=== PATIENT | female | born 1950 | race Caucasian/White ===

== ENCOUNTER 2017-03-29 12:25 | Outpatient (CLI) | payer OTHER ==
[~2017-03-29 12:25] MED LIST: ALBUTEROL2.5 MG/3 M IH; BUTALBITAL COMP; CALAN SR120 MG PO; CLARITIN PO; Cardizem 120MG TAB PO; FORTAMET1000 MG; Fioricet Tablet PO; HYZAAR 50-12.1 UDTAB PO; Hyzaar 50-12.5 Tablet PO; LEVAQUIN750 MG PO; NEXIUM20 MG/PACK PO; ORPH100T PO; PLAVIX 75MG PO; PREMARIN0.45 MG PO; Pepcid 20 MG TABLET PO; Xopenex 0.63 MG/3 ML SOLUTION IH; ZYNCOF 20-400120 ML PO; [UNRECOGNIZED DRUG - CODE]
== END 2017-03-29 12:35 | disposition home or self-care (01) ==
LOC: MAMO-SONO 12:25
DX: N60.11 Diffuse cystic mastopathy of right breast (principal); N60.12 Diffuse cystic mastopathy of left breast

== ENCOUNTER 2017-10-11 21:09 | Emergency (ER) | payer OTHER ==
[~2017-10-11] VITALS: Ht 154.9 cm; Wt 82.6 kg
[2017-10-11] MEDS ORDERED: DEXILANT60 MG (21:19)
[2017-10-12] MEDS ORDERED: DOLOGESIC 500-1 EACH PO (04:16)
== END 2017-10-12 04:42 | disposition home or self-care (01) ==
LOC: ER 21:09 → CPU-OBS 21:57 → ER 10-12 04:42
DX: R07.89 Other chest pain (principal)
CPT/HCPCS: G0378; G0379; 93005

== ENCOUNTER 2017-10-24 12:30 | Outpatient (CLI) | payer OTHER ==
[~2017-10-24 12:30] MED LIST changes: +DEXILANT60 MG; +DOLOGESIC 500-1 EACH PO
== END 2017-10-24 12:32 | disposition home or self-care (01) ==
LOC: LAB 12:30
DX: I11.9 Hypertensive heart disease without heart failure (principal); E78.00 Pure hypercholesterolemia, unspecified

== ENCOUNTER 2017-11-06 13:17 | Outpatient (CLI) | payer OTHER | END 2017-11-06 13:21 | disposition home or self-care (01) | LOC: RAD 13:17 | DX: M54.5 Low back pain (principal); M54.89 Other dorsalgia; R25.2 Cramp and spasm; M19.90 Unspecified osteoarthritis, unspecified site; G56.02 Carpal tunnel syndrome, left upper limb; G56.01 Carpal tunnel syndrome, right upper limb ==

== ENCOUNTER 2018-05-12 11:58 | Outpatient (CLI) | payer OTHER | END 2018-05-12 15:32 | disposition home or self-care (01) | LOC: RAD 11:58 | DX: M54.2 Cervicalgia (principal); M54.5 Low back pain; M15.0 Primary generalized (osteo)arthritis; M16.0 Bilateral primary osteoarthritis of hip ==

== ENCOUNTER 2018-05-22 15:13 | Emergency (ER) | payer OTHER ==
[~2018-05-22] VITALS: Ht 154.9 cm; Wt 86.2 kg
[2018-05-22] MEDS ORDERED: INTESTINEX680 M1 PO (22:39)
[2018-05-22] MEDS ORDERED: URIN D.S. TABL1 EACH PO (22:39)
[2018-05-22] MEDS ORDERED: BACTRIM DS TAB1 EACH PO (22:39)
[2018-05-22] MEDS ORDERED: BUTALB-ACETAMI1 EACH PO (22:40)
== END 2018-05-22 22:49 | disposition home or self-care (01) ==
LOC: ER 15:13
DX: M54.5 Low back pain (principal); R10.31 Right lower quadrant pain

== ENCOUNTER 2018-08-07 15:47 | Outpatient (CLI) | payer OTHER ==
[~2018-08-07 15:47] MED LIST changes: +BACTRIM DS TAB1 EACH PO; +BUTALB-ACETAMI1 EACH PO; +INTESTINEX680 M1 PO; +URIN D.S. TABL1 EACH PO
== END 2018-08-07 15:51 | disposition home or self-care (01) ==
LOC: RAD 15:47
DX: M54.5 Low back pain (principal); I10 Essential (primary) hypertension; E78.89 Other lipoprotein metabolism disorders; E55.9 Vitamin D deficiency, unspecified; E11.51 Type 2 diabetes mellitus with diabetic peripheral angiopathy without gangrene; E11.9 Type 2 diabetes mellitus without complications; M89.8X8 Other specified disorders of bone, other site; K21.9 Gastro-esophageal reflux disease without esophagitis; E11.42 Type 2 diabetes mellitus with diabetic polyneuropathy; F41.8 Other specified anxiety disorders; N13.5 Crossing vessel and stricture of ureter without hydronephrosis; N13.2 Hydronephrosis with renal and ureteral calculous obstruction

== ENCOUNTER 2018-09-17 11:22 | Outpatient (CLI) | payer OTHER | END 2018-09-17 11:59 | disposition home or self-care (01) | LOC: SONOGRAMA 11:22 | DX: N20.0 Calculus of kidney (principal); N83.291 Other ovarian cyst, right side ==

== ENCOUNTER 2018-12-03 21:26 | Emergency (ER) | payer OTHER ==
[~2018-12-03] VITALS: Ht 154.9 cm; Wt 86.2 kg
== END 2018-12-04 03:14 | disposition home or self-care (01) ==
LOC: ER 21:26
DX: M25.551 Pain in right hip (principal)

== ENCOUNTER 2019-02-05 13:59 | Outpatient (CLI) | payer OTHER | END 2019-02-05 14:05 | disposition home or self-care (01) | LOC: MAMO-SONO 13:59 | DX: I10 Essential (primary) hypertension (principal); M54.5 Low back pain; E78.49 Other hyperlipidemia; E55.9 Vitamin D deficiency, unspecified; E11.51 Type 2 diabetes mellitus with diabetic peripheral angiopathy without gangrene; E11.9 Type 2 diabetes mellitus without complications; M89.8X8 Other specified disorders of bone, other site; K21.9 Gastro-esophageal reflux disease without esophagitis; E11.42 Type 2 diabetes mellitus with diabetic polyneuropathy; F41.8 Other specified anxiety disorders; N13.5 Crossing vessel and stricture of ureter without hydronephrosis; N13.2 Hydronephrosis with renal and ureteral calculous obstruction ==

== ENCOUNTER 2019-03-15 15:04 | Emergency (ER) | payer OTHER ==
[~2019-03-15] VITALS: Ht 154.9 cm; Wt 82.6 kg
[2019-03-15] MEDS ORDERED: FORTAMET1000 MG (16:12)
[2019-03-15] MEDS ORDERED: DEXILANT30 MG (16:12)
== END 2019-03-15 21:23 | disposition home or self-care (01) ==
LOC: ER 15:04
DX: M94.0 Chondrocostal junction syndrome [Tietze] (principal); R07.89 Other chest pain

== ENCOUNTER → 2019-07-13 11:08 | Outpatient (CLI) | payer OTHER ==
[~2019-07-13 11:08] MED LIST changes: +DEXILANT30 MG
== END | disposition home or self-care (01) ==
LOC: LAB 11:08
DX: K30 Functional dyspepsia (principal); K21.9 Gastro-esophageal reflux disease without esophagitis; D13.1 Benign neoplasm of stomach; I11.9 Hypertensive heart disease without heart failure; E78.49 Other hyperlipidemia

== ENCOUNTER 2019-10-14 11:18 | Outpatient (CLI) | payer OTHER | END 2019-10-14 11:28 | disposition home or self-care (01) | LOC: MAMO-SONO 11:18 | PROVIDERS: ATTEND Specialist | DX: Z12.31 Encounter for screening mammogram for malignant neoplasm of breast (principal); N60.11 Diffuse cystic mastopathy of right breast; N60.12 Diffuse cystic mastopathy of left breast ==

== ENCOUNTER 2019-11-09 11:07 | Outpatient (CLI) | payer OTHER | END 2019-11-09 11:33 | disposition home or self-care (01) | LOC: NUCLEAR 11:07 | PROVIDERS: ATTEND Internal Medicine Rheumatology | DX: M81.0 Age-related osteoporosis without current pathological fracture (principal) ==

== ENCOUNTER → 2019-11-09 | Outpatient (CLI) | payer OTHER | END | disposition home or self-care (01) | LOC: RAD 12:21 | PROVIDERS: ATTEND Internal Medicine Rheumatology | DX: M51.26 Other intervertebral disc displacement, lumbar region (principal); M70.61 Trochanteric bursitis, right hip; M70.62 Trochanteric bursitis, left hip; M17.0 Bilateral primary osteoarthritis of knee ==

== ENCOUNTER 2020-08-25 10:20 | Outpatient (CLI) | payer OTHER | END 2020-08-25 10:31 | disposition home or self-care (01) | LOC: SONOGRAMA 10:20 | PROVIDERS: ATTEND Specialist | DX: R10.31 Right lower quadrant pain (principal); R10.32 Left lower quadrant pain ==

== ENCOUNTER 2020-12-29 14:31 | Outpatient (CLI) | payer OTHER | END 2020-12-29 14:40 | disposition home or self-care (01) | LOC: RAD 14:31 | DX: M25.572 Pain in left ankle and joints of left foot (principal); M25.571 Pain in right ankle and joints of right foot; M54.59 Other low back pain; M17.0 Bilateral primary osteoarthritis of knee; M72.8 Other fibroblastic disorders ==

== ENCOUNTER 2021-11-01 09:33 | Outpatient (CLI) | payer OTHER | END 2021-11-01 09:39 | disposition home or self-care (01) | LOC: MAMO-SONO 09:33 | PROVIDERS: ATTEND Internal Medicine Rheumatology | DX: R10.9 Unspecified abdominal pain (principal); R10.2 Pelvic and perineal pain; Z12.31 Encounter for screening mammogram for malignant neoplasm of breast; N60.19 Diffuse cystic mastopathy of unspecified breast ==

== ENCOUNTER 2022-01-23 10:40 | Outpatient (CLI) | payer OTHER | END 2022-01-23 10:53 | disposition home or self-care (01) | LOC: RAD 10:40 | PROVIDERS: ATTEND Radiology Nuclear Radiology | DX: M50.10 Cervical disc disorder with radiculopathy, unspecified cervical region (principal); M51.24 Other intervertebral disc displacement, thoracic region; M51.27 Other intervertebral disc displacement, lumbosacral region; M25.551 Pain in right hip; M25.552 Pain in left hip; M23.200 Derangement of unspecified lateral meniscus due to old tear or injury, right knee; N20.0 Calculus of kidney ==

== ENCOUNTER 2022-05-10 13:08 | Outpatient (CLI) | payer OTHER ==
[~2022-05-10 13:08] MED LIST changes: +CONZIP200 MG; +FOLIC ACID0.8 M1; +NEURONTIN300 MG; +PLAVIX75 MG
== END 2022-05-10 13:12 | disposition home or self-care (01) ==
LOC: NUCLEAR 13:08
DX: M81.0 Age-related osteoporosis without current pathological fracture (principal)

== ENCOUNTER 2022-06-27 14:47 | Outpatient (CLI) | payer OTHER | END 2022-06-27 14:50 | disposition home or self-care (01) | LOC: RAD 14:47 | PROVIDERS: ATTEND Specialist | DX: M54.2 Cervicalgia (principal); M16.0 Bilateral primary osteoarthritis of hip; M17.0 Bilateral primary osteoarthritis of knee ==

== ENCOUNTER 2022-10-10 11:48 | Outpatient (CLI) | payer OTHER | END 2022-10-10 11:57 | disposition home or self-care (01) | LOC: SONOGRAMA 11:48 | PROVIDERS: ATTEND Specialist | DX: M75.100 Unspecified rotator cuff tear or rupture of unspecified shoulder, not specified as traumatic (principal); M50.20 Other cervical disc displacement, unspecified cervical region; M51.36 Other intervertebral disc degeneration, lumbar region; M16.0 Bilateral primary osteoarthritis of hip; M17.0 Bilateral primary osteoarthritis of knee ==

== ENCOUNTER 2022-10-26 11:02 | Outpatient (CLI) | payer OTHER | END 2022-10-26 11:07 | disposition home or self-care (01) | LOC: TOM 11:02 → MRI 11:02 → TOM 11:07 → MRI 11:07 | PROVIDERS: ATTEND Psychiatry & Neurology Pain Medicine | DX: M50.30 Other cervical disc degeneration, unspecified cervical region (principal); M54.12 Radiculopathy, cervical region; M75.101 Unspecified rotator cuff tear or rupture of right shoulder, not specified as traumatic; S09.90XS Unspecified injury of head, sequela; G43.919 Migraine, unspecified, intractable, without status migrainosus | CPT/HCPCS: 70551; 72141; 72148; 73221 ==